=== PATIENT | female | born 1990 | race Caucasian/White ===

== ENCOUNTER 2019-10-21 17:54 | Observation (INO) | payer BC, SELFPAY ==
[2019-10-21 18:31] VITALS: TEMP 36.6
[2019-10-21 18:32] VITALS: BP 119/59; PULSE 73
[2019-10-21] MEDS: ONDANSETRON INJ 4 MG/2 ML VIAL 8 MG IV PUSH (19:14)
[2019-10-21] MEDS: LACTATED RINGERS 1,000 ML 999 ML IV CONT (19:14)
--- NOTE | 2019-10-21 20:46 | OBADM ---
This patient, Mable Silva, admitted to the OB room OB Post 116 for observation. Patient/family oriented to hospital policies and general routines including ID bracelet, bed and alarms, visiting hours, pain management, procedures, bathroom and other care routines, personal items, smoking policy, room service/diet, and visiting hours. Patient/Family are encouraged to report perceived risks to care and to ask questions if they do not understand what they are told or what they should do.
--- NOTE | 2019-11-18 02:00 | PM.OBTRLD ---
OB - Triage/Final Diagnosis Final Diagnosis (1) Nausea and vomiting during : Code(s): O21.9 - Vomiting of , unspecified Status: Acute
== END 2019-10-21 19:53 | disposition home or self-care (01) ==
PROVIDERS: Admitting Provider Student in an Organized Health Care Education/Training Program; PCP Family Medicine; Visit Provider Student in an Organized Health Care Education/Training Program
DX: O21.2 Late vomiting of pregnancy (principal); Z3A.23 23 weeks gestation of pregnancy
CPT/HCPCS: 96374; G0378; G0379; J2405; J7120

== ENCOUNTER 2019-11-23 14:04 | Outpatient (CLI) | payer BC, SELFPAY ==
[2019-11-23 15:25] LABS: Basophils Percent Auto 0.3 % (0.2-1.2); Eosinophils Percent Auto 0.4 % (0-4.4); Hematocrit 32.8 % (37.0-47.0); Immature Granulocyte Absolute 0.03 K/mm3 (0.00-0.031); Immature Granulocyte Percent A 0.4 % (0-0.5); Lymphocytes Absolute Auto 1.49 K/mm3 (0.9-3.2); Lymphocytes Percent Auto 19.2 % (18.3-44.2); Mean Corpuscular HGB Conc 33.5 g/dl (32-36); Mean Corpuscular Hemoglobin 31.3 pg (26-34); Mean Corpuscular Volume 93.2 fl (80-100); Mean Platelet Volume 10.1 fl (7.4-10.4); Monocytes Absolute Auto 0.5 K/mm3 (0.1-0.6); Monocytes Percent Auto 6.9 % (2.6-8.5); Neutrophils Absolute Auto 5.7 K/mm3 (1.3-6.7); Neutrophils Percent Auto 72.8 % (45.5-73.1); Platelet Count Result 164 k/mm3 (150-375); Red Blood Count 3.52 M/mm3 (4.2-5.4); Red Cell Distribution Width 12.8 % (11.5-14.5); White Blood Count 7.8 K/mm3 (4.5-10.0)
[2019-11-23 15:33] LABS: Glucose 1 Hour PP 50gm Dose 104 mg/dL
== END 2019-11-23 14:05 | disposition home or self-care (01) ==
PROVIDERS: PCP Family Medicine; Visit Provider Student in an Organized Health Care Education/Training Program
DX: Z34.90 Encounter for supervision of normal pregnancy, unspecified, unspecified trimester (principal); Z3A.00 Weeks of gestation of pregnancy not specified
CPT/HCPCS: 36415; 82947; 85025

== ENCOUNTER 2019-12-03 15:48 | Outpatient (CLI) | payer BC, SELFPAY ==
--- NOTE | ~2019-12-03 | US_ITS ---
US OB limited 12/03/2019 16:27 Indication: Low-lying placenta Procedure: Limited obstetrical ultrasound using transabdominal technique Comparison: 09/21/2019 Findings: There is a single living intrauterine in vertex presentation. heart rate is 139 BPM. Placenta is posterior without previa. Placental margin measures 3.3 cm to the cervix. Amnio tic fluid volume is subjectively normal. Impression: 1: Single living intrauterine in vertex presentation. 2: Posterior placenta with the margin measuring 3.3 cm to the cervix. Reviewed, dictated and finalized at location B. UNT MAINTENANCE REPRESENTATIVE Impression: 1: Single living intrauterine in vertex presentation. 2: Posterior placenta with the margin measuring 3.3 cm to the cervix.
== END 2019-12-03 15:49 | disposition home or self-care (01) ==
LOC: ANHIMG 15:51
PROVIDERS: PCP Family Medicine; Visit Provider Student in an Organized Health Care Education/Training Program
DX: O44.40 Low lying placenta NOS or without hemorrhage, unspecified trimester (principal)
CPT/HCPCS: 76815

== ENCOUNTER 2020-01-21 10:57 | Outpatient (CLI) | payer BC, SELFPAY ==
[2020-01-21 11:18] LABS: Basophils Percent Auto 0.4 % (0.2-1.2); Eosinophils Percent Auto 0.3 % (0-4.4); Hematocrit 32.1 % (37.0-47.0); Hemoglobin 10.5 g/dL (12.0-15.0); Immature Granulocyte Absolute 0.03 K/mm3 (0.00-0.031); Immature Granulocyte Percent A 0.4 % (0-0.5); Immature Platelet Fraction Pct 3.9 % (0.9-11.2); Lymphocytes Absolute Auto 1.15 K/mm3 (0.9-3.2); Lymphocytes Percent Auto 16.9 % (18.3-44.2); Mean Corpuscular HGB Conc 32.7 g/dl (32-36); Mean Corpuscular Hemoglobin 30.4 pg (26-34); Monocytes Absolute Auto 0.6 K/mm3 (0.1-0.6); Monocytes Percent Auto 9.4 % (2.6-8.5); Neutrophils Absolute Auto 4.9 K/mm3 (1.3-6.7); Neutrophils Percent Auto 72.6 % (45.5-73.1); Platelet Count Result 141 k/mm3 (150-375); Red Blood Count 3.45 M/mm3 (4.2-5.4); Red Cell Distribution Width 12.9 % (11.5-14.5); White Blood Count 6.8 K/mm3 (4.5-10.0)
[2020-01-21 12:34] LABS: HIV 1/2 Ab P24 Ag Result Negative (Negative)
[2020-01-22 09:42] LABS: Rapid Plasma Reagin Non-Reactive (NonReactive)
== END 2020-01-21 10:58 | disposition home or self-care (01) ==
LOC: ANHLAB 11:00
PROVIDERS: PCP Family Medicine; Visit Provider Student in an Organized Health Care Education/Training Program
DX: Z34.83 Encounter for supervision of other normal pregnancy, third trimester (principal)
CPT/HCPCS: 36415; 85025; 85055; 86592; 86703; G0432

== ENCOUNTER 2020-02-09 06:25 | Inpatient (IN) | payer BC, SELFPAY ==
[2020-02-09] VITALS (131 sets, daily range): BP systolic 91–172; BP diastolic 41–129; PULSE 60–140; RESP 18–20; TEMP 36.2–36.9; O2SAT 96–100
--- NOTE | 2020-02-09 06:25 | LDADM ---
This patient, Mable Silva, was admitted to Labor/Delivery/Recovery 105 on 02/09/20 at 06:25. Plans for labor, pain management and were discussed with patient. Patient/family oriented to hospital policies and general routines including ID bracelet, bed and alarms, visiting hours, pain management, procedures, bathroom and other care routines, personal items, smoking policy, room service/diet and guest tray routines, infant security routines, and visiting hours. Patient/Family are encouraged to report perceived risks to care and to ask questions if they do not understand what they are told or what they should do. See OBIX for further documentation.
--- NOTE | 2020-02-09 06:38 | LDADM ---
This patient, Mable Silva, was admitted to Labor/Delivery/Recovery 105 on 02/09/20 at 06:29. Plans for labor, pain management and were discussed with patient. Patient/family oriented to hospital policies and general routines including ID bracelet, bed and alarms, visiting hours, pain management, procedures, bathroom and other care routines, personal items, smoking policy, room service/diet and guest tray routines, infant security routines, and visiting hours. Patient/Family are encouraged to report perceived risks to care and to ask questions if they do not understand what they are told or what they should do. See OBIX for further documentation.
[2020-02-09] MEDS: LACTATED RINGERS 1,000 ML 125 ML IV CONT ×6 (06:59→19:05)
[2020-02-09] MEDS: CLINDAMYCIN 900 MG/NS 50 ML 900 MG/50 ML PIGGYBACK 50 MG IVPB ×2 (07:00→14:50)
[2020-02-09 07:17] LABS: Basophils Percent Auto 0.3 % (0.2-1.2); Eosinophils Percent Auto 0.5 % (0-4.4); Hematocrit 32.6 % (37.0-47.0); Hemoglobin 11.2 g/dL (12.0-15.0); Immature Granulocyte Absolute 0.05 K/mm3 (0.00-0.031); Immature Granulocyte Percent A 0.6 % (0-0.5); Lymphocytes Absolute Auto 1.77 K/mm3 (0.9-3.2); Lymphocytes Percent Auto 22.9 % (18.3-44.2); Mean Corpuscular HGB Conc 34.4 g/dl (32-36); Mean Corpuscular Hemoglobin 31.1 pg (26-34); Mean Corpuscular Volume 90.6 fl (80-100); Mean Platelet Volume 10.4 fl (7.4-10.4); Monocytes Absolute Auto 0.7 K/mm3 (0.1-0.6); Monocytes Percent Auto 9.1 % (2.6-8.5); Neutrophils Absolute Auto 5.1 K/mm3 (1.3-6.7); Neutrophils Percent Auto 66.6 % (45.5-73.1); Platelet Count Result 128 k/mm3 (150-375); Red Cell Distribution Width 12.8 % (11.5-14.5); White Blood Count 7.7 K/mm3 (4.5-10.0)
[2020-02-09] MEDS: OXYTOCIN 30 UNITS/NS 500 ML 30 UNITS/500 ML BAG IV CONT (07:41)
--- NOTE | 2020-02-09 08:35 | P.PNAN_ITS ---
Anes - Eval Pre Procedure Procedure: Labor epidural Date/Time: 02/09/20 08:35 Surgeon: Quentin Preop Diagnosis: pain during labor Pre Op Diagnosis: Induction of Labor Patient Data Age: 29 Gender: F Height: 1.65 m Weight: 82 kg Last Vital Signs Temp 36.8 C 02/09/20 07:16 Pulse 77 02/09/20 08:34 BP 107/67 02/09/20 08:34 Allergies Allergy/AdvReac Type Severity Reaction Status Date / Time Penicillins Allergy Unknown Hives Verified 02/02/20 09:09 Home Medications Medication Instructions Recorded Confirmed Type docosahexaenoic acid [ DHA] 200 mg PO DAILY 01/25/20 02/09/20 History Laboratory Tests 02/09/20 02/09/20 02/09/20 06:52 06:52 06:52 WBC 7.7 K/mm3 K/mm3 (4.5-10.0) RBC 3.60 M/mm3 L M/mm3 (4.2-5.4) Hgb 11.2 g/dL L g/dL (12.0-15.0) Hct 32.6 % L % (37.0-47.0) MCV 90.6 fl fl (80-100) MCH 31.1 pg pg (26-34) MCHC 34.4 g/dl g/dl (32-36) RDW 12.8 % % (11.5-14.5) Plt Count 128 k/mm3 L k/mm3 (150-375) MPV 10.4 fl fl (7.4-10.4) Immature Gran % (Auto) 0.6 % H % (0-0.5) Neut % (Auto) 66.6 % % (45.5-73.1) Lymph % (Auto) 22.9 % % (18.3-44.2) [place] % (Auto) 9.1 % H % (2.6-8.5) Eos % (Auto) 0.5 % % (0-4.4) Baso % (Auto) 0.3 % % (0.2-1.2) Lymph # (Auto) 1.77 K/mm3 K/mm3 (0.9-3.2) [place] # (Auto) 0.7 K/mm3 H K/mm3 (0.1-0.6) Eos # (Auto) 0.0 K/mm3 K/mm3 (0-0.3) Baso # (Auto) 0.0 K/mm3 K/mm3 (0.0-0.1) Abs Immat Gran (auto) 0.05 K/mm3 H K/mm3 (0.00-0.031) Absolute Neuts (auto) 5.1 K/mm3 K/mm3 (1.3-6.7) Absolute Nucleated RBC 0.0 K/mm3 K/mm3 (0.0-0.012) Nucleated RBC % 0.0 % % (0.0-0.2) RPR Pending Blood Type O Positive Antibody Screen Negative Patient hx anesthesia problems: none Family hx anesthesia problems: none [facility] Family History Family History (Updated 01/25/20 @ 14:35 by Papo Yañez RN) Grandparent Family history of hypothyroidism Family history of coronary artery disease Malignant neoplasm of prostate Mother Family history of hypothyroidism Social History Social History Smoking status: Never smoker Second hand tobacco smoke exposure: No Alcohol intake: current Substance use: never Spiritual care concerns: No Exam Day of Procedure 02/09/20 08:35
[2020-02-09 08:47] LABS: Rapid Plasma Reagin Non-Reactive (NonReactive)
--- NOTE | 2020-02-09 09:01 | PM.IMHP ---
H&P: HPI History of Present Illness Chief complaint: Induction of Labor Narrative: Mable Silva is a 29 year old female currently 39w1d who presented to L&D for scheduled elective induction of labor. LMP 05/11/19 with an CRYSTAL 02/15/20. She is dated by LMP, which is consistent with an US on 07/04/20 at 7 weeks gestation. Patient reports feeling well today. Denies any vaginal bleeding or leakage of fluid. Reports occasional contractions and good movement. Review of Systems Review of Systems: All systems reviewed & are unremarkable except as noted in HPI and below Constitutional: Constitutional: Reports as per HPI, Reports no additional constitutional complaints, Denies chills, Denies fever(s) and Denies headache(s) Eyes: Eyes: Reports as per HPI and Reports no additional eye complaints ENT: Reports system reviewed and no additional complaints, except as documented and Reports as per HPI Cardiovascular: Cardiovascular: Reports as per HPI, Reports no additional cardiovascular complaints and Denies chest pain Respiratory: Respiratory: Reports as per HPI, Reports no additional respiratory complaints and Denies dyspnea Gastrointestinal: Gastrointestinal: Reports as per HPI, Reports no additional gastrointestinal complaints, Denies abdominal pain, Denies nausea and Denies vomiting Genitourinary: Genitourinary: Reports no additional female genitourinary complaints and Reports as per HPI Musculoskeletal: Musculoskeletal: Reports no additional musculoskeletal complaints and Reports as per HPI Integumentary/Breasts: Skin/Breast: Reports system reviewed and no additional complaints, except as docu and Reports as per HPI Neurologic: Reports system reviewed and no additional complaints, except as documented and Reports as per HPI Psychiatric: Psychiatric: Reports no additional psychiatric complaints and Reports as per HPI Endocrine: Endocrine: Reports no additional endocrine complaints and Reports as per HPI Hematologic/Lymphatic: Hematologic/Lymphatic: Reports no additional hematologic/lymphatic complaints and Reports as per HPI Allergic/Immunologic: Allergic/Immunologic: Reports no additional allergic/immunologic complaints and Reports as per HPI [facility] Family History Family History Grandparent Family history of hypothyroidism Family history of coronary artery disease Malignant neoplasm of prostate Mother Family history of hypothyroidism Social History Social History Smoking status: Never smoker Second hand tobacco smoke exposure: No Alcohol intake: current Substance use: never Spiritual care concerns: No Meds Home Medications and Allergies Home Medications Medication Instructions Recorded Confirmed Type docosahexaenoic acid [ DHA] 200 mg PO DAILY 01/25/20 02/09/20 History Allergies Allergy/AdvReac Type Severity Reaction Status Date / Time Penicillins Allergy Unknown Hives Verified 02/02/20 09:09 Vital Signs Vital Signs - 24 hr 02/09/20 07:03 02/09/20 07:16 02/09/20 07:31 Temperature 36.8 C Pulse Rate 85 75 Blood Pressure 121/70 112/67 02/09/20 08:01 02/09/20 08:34 Temperature Pulse Rate 77 77 Blood Pressure 116/68 107/67 Exam Const: General: comfortable and no acute distress HENMT: Head: normal to inspection, normocephalic and atraumatic Ears: hearing grossly normal bilaterally Eyes: General: appearance normal, both eyes and all related structures Neck: Neck: normal visual inspection Resp: Effort & Inspection: normal respiratory effort Auscultation: clear to auscultation bilaterally Cardio: Rate: regular rate Rhythm: regular rhythm GI: GI Palp: Yes Soft to palpation and No Tenderness to palpation present (GI) Percussion: Yes other (gravid) : External Female Exam: normal external appearance Bimanual exam- vagina & uterus: normal bimanual e
--- NOTE | 2020-02-09 12:10 | PM.OBPNLAB ---
Pain Control Date/time seen: 02/09/20 12:10 Patient doing well. Comfortable s/p epidural. SVE /-2. AROM clear fluid noted. EFM Category 1. [place] shows contractions every 2-3 mins. Continue pitocin. Continuous EFM and toco.
--- NOTE | 2020-02-09 21:33 | PM.OBPRVD ---
OB - Delivery Note Procedure Delivery date: 02/09/20 Procedure: The patient is now a 29-year-old 002 who presented to Labor and delivery on the morning of 02/09/2020 for scheduled elective induction of labor at 39 weeks 1 day gestation. Initial cervical exam was 3 cm dilated. Induction of labor was begun with Pitocin. The Pitocin was slowly titrated throughout the morning and afternoon. Patient had a positive GBS culture during and clindamycin was started for GBS prophylaxis. Artificial rupture membranes was performed at approximately 11:50 a.m.. Clear amniotic fluid was noted. Pitocin was continued to titrated. The patient became uncomfortable and requested epidural for pain management which was placed without difficulty. Patient made slow cervical change. An IUPC was placed for enhanced monitoring. The patient continued to make cervical change and was noted to be fully dilated at 8:38 p.m.. She was prepped and draped for delivery. The patient was encouraged to push and found be coursing well. head was delivered atraumatically without difficulty at 9:15 p.m. in KIMMY presentation. Occiput restituted to maternal left side. A nuchal cord x1 was noted and easily reduced. With subsequent push, the 's neck, shoulders, and rest of body were delivered without difficulty. Nose and mouth were suctioned with bulb suction and the infant was placed on maternal abdomen for care was assumed by waiting nursing staff. Delayed cord clamping was performed for approximately 60 seconds. The cord was clamped and cut. A segment of cord was collected for cord gases. Cord blood was collected. The placenta was delivered spontaneously and intact. Uterine fundus was noted to be firm with bimanual massage. On inspection superficial first-degree perineal laceration was noted as well as the superficial right labial laceration. These lacerations were made hemostatic with 3-0 Vicryl in the usual fashion. Excellent hemostasis was noted. The was a live-born female , Apgars 7 and 9, weight 7 lbs 4 oz. Estimated blood loss for entire delivery was 300 cc. Both mother and baby doing well in the delivery. Routine care to continue. events: Labor Induction Induction method: per pitocin protocol Delivery augmentation: rupture of membranes Delivery monitor: external FHT, external uterine and internal uterine Route of delivery: Laceration description: Perineal - 1st Degree (superficial R labial) Delivery repair: vicryl Specimen: Yes (cord blood and cord gases) Estimated blood loss (mL): 300 Anesthesia type: Epidural Disposition: floor Complications: None Baby Date of : 02/09/20 Time of : 21:15 Weeks of gestation at delivery: 39 (39.1) Infant gender: Female Weight (pounds): 7 Weight (ounces): 4 presentation: vertex position: Left Occiput Anterior Placenta delivery description: Spontaneous cord vessel description: 3 Vessels, Nuchal Cord (x1) and Clamped/Cut score one minute: 7 score five minutes: 9
[2020-02-09] MEDS: OXYTOCIN 30 UNITS/NS 500 ML 30 UNITS/500 ML BAG 125 UNITS IV CONT (21:46)
[2020-02-09] MEDS: BENZOCAINE 20% AER SPR (*SP) 56 GM CAN 1 SPRAY TOPICAL (23:17)
[2020-02-09] MEDS: WITCH HAZEL 40 PADS 1 PAD TOPICAL (23:17)
[2020-02-09] MEDS: IBUPROFEN 600 MG TABLET PO (23:48)
--- NOTE | 2020-02-09 23:54 | OBPPTRN ---
Patient transferred to post room #279 via WC. Support person present. Oriented to unit, room, information board, rooming in, admission packet and security measures. Patient verbalizes understanding. Infant accompanied mother to room per crib.
[2020-02-10 01:05] VITALS: BP 126/73; PULSE 80; RESP 20; TEMP 37.6
[2020-02-10] MEDS: IBUPROFEN 600 MG TABLET PO ×3 (05:38→23:01)
[2020-02-10 05:50] LABS: Hematocrit 29.9 % (37.0-47.0); Hemoglobin 10.2 g/dL (12.0-15.0)
--- NOTE | 2020-02-10 08:05 | WPDANLDPN2 ---
Anes-Prog Note L&D Date/Time: 02/10/20 08:05 Comfortable throughout: labor and delivery Neuraxial method: epidural Epidural/Spinal procedure site: clean & non-tender Neuro status: Neuro function grossly intact. Cardiovascular status: normal Respiratory status: normal Airway patency: baseline Mental status: baseline Post-Op hydration status: normal Vital Signs: Last Vital Signs Temp 37.6 C 02/10/20 01:05 Pulse 80 02/10/20 01:05 Resp 20 02/10/20 01:05 BP 126/73 02/10/20 01:05 Pulse Ox 100 02/09/20 16:21 I/O: Intake & Output 02/09/20 02/10/20 02/10/20 23:59 07:59 15:59 Intake Total 1900 Output Total 86 Balance 1814 Post-procedural complaints: none Patient feedback: Patient satisfied with anesthetic care.
[2020-02-10 08:40] VITALS: BP 118/67; PULSE 67; RESP 18; TEMP 37.2; O2SAT 99
[2020-02-10] MEDS: DOCUSATE SODIUM 100 MG CAPSULE PO (09:13)
[2020-02-10] MEDS: MULTIVIT/MIN/PREN/FOL AC/IRON TABLET 1 TAB PO (09:13)
--- NOTE | 2020-02-10 12:19 | PM.OBPNVD ---
OB - PN: Subj Subjective Date/time seen: 02/10/20 12:19 Patient reports feeling well this morning. Denies any vaginal/pelvic pain. Minimal lochia. Denies any headache, chest pain, SOB, N/V. Tolerating PO diet. Ambulating without difficulty. OB - PN: Obj Data Labs CBC & Chem 7: 02/10/20 05:00 Labs: Laboratory Results - last 24 hr 02/10/20 05:00 Hgb 10.2 L Hct 29.9 L OB - PN A/P Assessment and Plan (1) Normal spontaneous vaginal delivery: Code(s): O80 - Encounter for full-term uncomplicated delivery Status: Acute Assessment and Plan: Doing well Continue routine care Anticipate dc home tomorrow Time Spent With Patient Time: Total time spent is greater than 50% in coordination of care (as documented) at patient's floor/unit and/or counseling patient: Exam Const: General: comfortable and no acute distress GI: GI Palp: Yes Soft to palpation, No Tenderness to palpation present (GI) and Yes Other GI palpation findings present (fundus below umbilicus) Extrem: Right lower extremity: no edema Left lower extremity: no edema Other: no calf tenderness
--- NOTE | 2020-02-10 15:55 | PC.NURSE ---
Consulted with patient, mother reports infant is ready to feed. Mother states is latching well, she is sleepy while at breast, needing stimulation to keep awake. Mother feels sleeps more than nursing. Mother voices concerns with latch due to infant facial asymmetry. Discussed this may impact latch and effective suckling. Positioning/alignment positions can be adjusted to assist . Reviewed infant feeding cues, frequencies, duration of feedings, feeding elimination flow sheet, and signs of adequate intake. Demonstrated stimulation techniques to wake for feeding. Assisted with to breast. Reviewed positioning/alignment in cross cradle, holding breast holding breast in U hold and guided asymmetrical latch on. was able to latch correctly. Infant nursed eagerly, with steady draws and frequent swallowing noted. Reviewed signs of a correct latch, effective nursing and suck swallow ratio. Infant was able to maintain latch without discomfort to mother. Nipple care reviewed. Suggested mother continue to hold breast during entire feeding and to stimulate to keep is a consistent suck swallow which may assist infant with maintaining deep latch. Instructed mother to call out for RN assistance if she is unable to latch infant for feeding or she has discomfort with nursing. Instructed feeding should be initiated three hours from start of last feeding or if feeding cues are noted before. Mother voiced understanding of information shared.
[2020-02-10 19:30] VITALS: BP 128/81; PULSE 71; RESP 16; TEMP 36.8; O2SAT 100
[2020-02-11 07:35] VITALS: BP 129/54; PULSE 69; RESP 18; TEMP 36.9; O2SAT 100
[2020-02-11 08:00] VITALS: PULSE 69; RESP 18; O2SAT 100
--- NOTE | 2020-02-11 09:12 | PM.OBPNVD ---
OB - PN: Subj Subjective Date/time seen: 02/11/20 09:12 Patient doing well. Denies any pain. Minimal lochia. Ambulating well. Tolerating PO diet. OB - PN: Obj Data Labs CBC & Chem 7: 02/10/20 05:00 OB - PN A/P Assessment and Plan (1) Normal spontaneous vaginal delivery: Code(s): O80 - Encounter for full-term uncomplicated delivery Status: Acute Assessment and Plan: doing well discharge home in stable condition emergency precautions reviewed f/u in 4-6 weeks for visit Time Spent With Patient Time: Total time spent is greater than 50% in coordination of care (as documented) at patient's floor/unit and/or counseling patient: Review of Systems Constitutional: Constitutional: Reports as per HPI and Reports no additional constitutional complaints Cardiovascular: Cardiovascular: Reports as per HPI and Reports no additional cardiovascular complaints Respiratory: Respiratory: Reports as per HPI and Reports no additional respiratory complaints Gastrointestinal: Gastrointestinal: Reports as per HPI and Reports no additional gastrointestinal complaints Genitourinary: Genitourinary: Reports no additional female genitourinary complaints Exam Const: General: comfortable and no acute distress GI: GI Palp: Yes Soft to palpation, No Tenderness to palpation present (GI) and No Guarding due to palpation present (GI) Other: fundus firm below umbilicus Extrem: Right lower extremity: no edema Left lower extremity: no edema Other: no calf tenderness
--- NOTE | 2020-02-11 09:16 | PM.OBDSVD ---
DS: Diagnosis Admitting Diagnosis Admitting Diagnosis: Encounter for supervision of normal , unspecified, unspecified trimester OB - DS: Summary OB Procedures : None OB Procedures Intrapartum: Spontaneous Vag Delivery and GBS prophylaxis OB Procedures: : None Time Spent with Patient Time attestation: Total time spent providing and/or coordinating discharge services: Discharge Plan Discharge Attending physician on discharge: Radha Saavedra Discharging Clinician: Radha Saavedra Anticipated Discharge Date/Time: 02/11/20 09:16 Patient Disposition: Home, Self-Care Activity: as tolerated Diet: regular Discharge Instructions: Call office ([phone]) to schedule a visit in 4-6 weeks. You may take Ibuprofen 600mg every 6 hours as needed for pain. Pain medication may make you constipated. It may be helpful to take an [id number] stool softener, such as Colace and/or Senokot, along with the pain medication to help lessen constipation. Call office or go to ED for pain not controlled with medication, headache, chest pain, shortness of breath, fever, chills, persistent nausea or vomiting, severe abdominal pain, heavy vaginal bleeding >2 pads/hour, foul vaginal discharge or odor, or problems with your breasts. Patient Instructions: Antibiotic Form Stand Alone Forms: General Discharge Information Follow-up/Referrals: Radha Saavedra MD [Physician] - Discharge Medications: Continued DHA 200 mg Capsule 200 mg PO DAILY RF: 0 Date of admission: 02/09/20 06:25 Primary Care Provider: Ralph Waldron Admitting Provider: Radha Saavedra Attending physician on admission: Radha Saavedra Condition: Stable
[2020-02-11] MEDS: DOCUSATE SODIUM 100 MG CAPSULE PO (09:35)
[2020-02-11] MEDS: MULTIVIT/MIN/PREN/FOL AC/IRON TABLET 1 TAB PO (09:35)
[2020-02-11] MEDS: IBUPROFEN 600 MG TABLET PO (09:37)
--- NOTE | 2020-02-11 10:50 | PC.NURSE ---
Consult with pt, mother reports infant is more eager to latch since assist latch evening. Mother is able to latch independently latch infant with appropriate positioning/alignment. She denies any nipple discomfort, is feeding as required and waking infant to feed if needed. Infant has had 8 effective feedings in the past 24 hours, and is currently meeting outcomes for weight, output, jaundice and feeding frequencies. Mother states she feels confident to continue effective at home. Reviewed transition to breast milk, signs of adequate intake, and engorgement/relief. Instructed to call ICP if intake/output less than required. Reviewed regular medications mother is taking. Information provided per [place]. Reviewed community resources on the [facility] website and in the Mom/Baby guide. Information on outpatient services provided. Mother has no further questions at this time.
[2020-02-12 10:48] VITALS: BP 126/72; PULSE 80; RESP 16; TEMP 37.2; O2SAT 99
== END 2020-02-11 12:25 | disposition home or self-care (01) | DRG 807 ==
LOC: ANHLDR 06:39 → ANHOB2 02-10 00:04
PROVIDERS: Admitting Provider Student in an Organized Health Care Education/Training Program; PCP Family Medicine; Visit Provider Student in an Organized Health Care Education/Training Program
DX: O99.824 Streptococcus B carrier state complicating childbirth (principal); Z37.0 Single live birth; Z3A.39 39 weeks gestation of pregnancy; O69.81X0 Labor and delivery complicated by cord around neck, without compression, not applicable or unspecified; O70.0 First degree perineal laceration during delivery
CPT/HCPCS: 36415; 85014; 85018; 85025; 86592; 86850; 86900; 86901; A9270; J2590; J2795; J7120